=== PATIENT | male | born 1955 | race Caucasian/White ===

== ENCOUNTER → 2020-01-28 | Outpatient (CLI) | payer OTHER ==
--- NOTE | 2020-01-28 10:46 | Diagnostic Imaging Report ---
PROCEDURE: CT abdomen and pelvis without contrast. TECHNIQUE: Multiple contiguous axial images were obtained through the abdomen and pelvis without the use of intravenous contrast. Auto Exposure Controls were utilized during the CT exam to meet ALARA standards for radiation dose reduction. INDICATION: IVC filter placement. COMPARISON: There are no prior studies available for comparison. FINDINGS: There is a vena cava filter in place. The filter seems to be in good position and the filter lies at the level of the L2 vertebral body. The liver is homogeneous and not enlarged. The spleen, pancreas, adrenals, gallbladder, and aorta are unremarkable for an acute abnormality. There do appear to be a few radiopaque densities overlying the body of the pancreas. These could be related to surgical sutures or aortic calcifications. Correlation with the patient's surgical history would be recommended. The stomach was filled with particulate matter and consequently difficult to assess. There is no sign of renal mass and the kidneys do not appear to be obstructed. However, there is a 8 mm calculus in the inferior pole of the left kidney. There is no pelvic mass or free fluid collection evident. The urinary bladder and prostate gland are grossly unremarkable. There are few diverticula in the sigmoid and descending colon but there is no sign of acute diverticulitis. The appendix was not particularly well visualized but there are no indirect signs of acute appendicitis. The lung bases are clear. The bone windows are unremarkable for fracture or for destructive lesion. There are bilateral pedicle screws in place at T10 and T11. A single left pedicle screw at T12, a single right pedicle screw at L1, and bilateral pedicle screws at L2. The orthopedic hardware seems to be in good position. The lung bases are clear. IMPRESSION: 1. There is a vena cava filter in place and the filter seems to be in good position. 2. There is no acute abnormality of the abdomen or pelvis. 3. The radiopaque densities within the body of the pancreas are of uncertain etiology. Recommendations, as above. 4. There is diverticulosis of the sigmoid and descending colon but there is no sign of acute diverticulitis. 5. There are extensive postsurgical changes involving the thoracolumbar junction. Dictated by: Dictated on workstation # [id number]
== END ==
LOC: RAD FS 09:42
DX: Z45.89 Encounter for adjustment and management of other implanted devices (principal); K57.30 Diverticulosis of large intestine without perforation or abscess without bleeding; Z98.890 Other specified postprocedural states; Z95.828 Presence of other vascular implants and grafts
CPT/HCPCS: 74176